=== PATIENT | male | born 1990 | race Two or more races ===

== ENCOUNTER 2017-01-08 23:13 | Emergency (ER) | payer SELFPAY ==
--- NOTE | ~2017-01-08 | CR72 ---
[facility] A Service of [facility] RADIOLOGY TEXT RESULTS PATIENT: MARIAH GARCÍA LOCATION: [facility] : [birth year] UNIT #: [id number] AGE: [address]: Sergo Ovalles SEX: M ORDER DR: [id number] [facility] [address] [place] [place], [place] [address] [id number] MR#: [id number] Acc #: [id number] NAME: MARIAH GARCÍA : 1990 SEX: M STUDY DATE/TIME: 01/09/2017 0:36 UNIT: [facility] ROOM: STUDY DESCRIPTION: CR Chest Single View Portable Attending Physician: Sergo Ovalles P.A.-C. Ordering Physician: Sergo Ovalles P.A.-C. Primary Care Physician: No Primary Care Physician MEDICAL IMAGING REPORT This report is preliminary unless electronic signature is present EXAM Portable chest. INDICATIONS Chest pain tonight. PROCEDURE Frontal view chest. COMPARISON None. FINDINGS Heart size upper limits of normal. No dense consolidation, pleural fluid or pneumothorax. IMPRESSION No active process. Upper limits of normal heart size. Dictated by... Cole Christy M.D. THIS IS AN ELECTRONICALLY VERIFIED REPORT Cole Christy M.D. at 01/09/2017 9:59 PM EED/sheree TD: 01/09/2017 09:37 JOB #: [id number] MEDICAL IMAGING REPORT Page 1 of 1 COPY
--- NOTE | ~2017-01-08 | EKG ---
PATIENT: MARIAH GARCÍA UNIT #: [id number] Ventricular Rate: 70 BPM Atrial Rate: 70 BPM P-R Interval: 142 ms QRS Duration: 92 ms Q-T Interval: 380 ms QTC Calculation(Bezet): 410 ms P [place]: 56 degrees Calculated R [place]: -16 degrees Calculated T [place]: 9 degrees Diagnosis Line: Normal sinus rhythm Diagnosis Line: Normal ECG Diagnosis Line: No previous ECGs available Diagnosis Line: Confirmed by RACHEL FRANKEL MD ([id number]) on Diagnosis Line: 01/11/2017 7:26:26 AM INTERPRETING MD: MARLYS SHARMA
[2017-01-09 01:04] LABS: BASOPHIL% 0.4 % (0-2.5); DIFF IND NO; EOSINOPHIL# 0.1 X10e3 (0-0.7); EOSINOPHIL% 1.5 % (0.0-7.0); HEMATOCRIT 44.5 % (38.0-50.0); LYMPHOCYTE% 38.5 % (17.0-45.0); MEAN CELL VOLUME 82.3 FL (83-96); MEAN CORPUSCULAR HEMOGLOBIN 27.8 PG (28-34); MEAN CORPUSCULAR HGB CONC 33.8 g/dL (30-36); MEAN PLATELET VOLUME 10.4 FL (6.5-11.5); MONOCYTE# 0.8 X10e3 (0-1.0); MONOCYTE% 9.6 % (3.0-12.0); NEUTROPHIL# 3.9 X10e3 (1.5-7.1); PLATELET COUNT 186 X10e3 (140-420); RED CELL DISTRIBUTION WIDTH 13.3 % (11.0-15.5); WHITE BLOOD COUNT 7.9 X10e3 (4.0-10.5)
[2017-01-09 01:13] LABS: POC - CKMB 2.1 ng/mL (0.0-7.9); POC - TROPONIN <0.05 ng/mL (<=0.05)
[2017-01-09 01:32] LABS: ALBUMIN SERUM 4.4 g/dL (3.5-5.0); BILIRUBIN, DIRECT 0.1 mg/dL (0.0-0.2); BILIRUBIN,INDIRECT 1.1 mg/dL (0.0-0.9); BILIRUBIN,TOTAL 1.2 mg/dL (0.2-2.0); BUN/CREATININE RATIO 17.77; CALCIUM SERUM 8.8 mg/dL (8.4-10.2); CREATININE SERUM 0.9 mg/dL (0.6-1.4); GLOM FILT RATE Estimated 118.3 mL/min (>60); MAGNESIUM 2.3 mg/dL (1.6-3.0); POTASSIUM 3.4 mmol/L (3.5-5.1); PROTEIN TOTAL SERUM 7.5 g/dL (6.0-8.3)
== END 2017-01-09 02:52 | disposition home or self-care (01) ==
LOC: CED 23:13
PROVIDERS: Physician Assistant
DX: R07.89 Other chest pain (principal); R06.02 Shortness of breath; R50.9 Fever, unspecified
CPT/HCPCS: 36415; 71010; 80048; 80076; 82553; 83735; 84484; 85025; 93005; 96361; 96374; 99285; J1885